=== PATIENT | male | born 1990 | race Caucasian/White ===

== ENCOUNTER 2021-07-08 06:28 | Inpatient (IN) ==
[2021-07-08] MEDS ORDERED: CeFAZolin Syr 2,000MG/20 ML 2,000 MG/20 ML SYRINGE IVPB ONE (06:49)
[2021-07-08] MEDS ORDERED: Ringers Solution, Lactated 1,000 ML IVC SCH (07:00)
[2021-07-08] MEDS ORDERED: *HR* FentaNYL (PF) 100 MCG/2 ML VIAL IVP PRN (07:01)
[2021-07-08] MEDS ORDERED: *HR* HYDROmorphone PF 0.5 MG/0.5 ML SYRINGE IVP PRN (07:01)
[2021-07-08] MEDS ORDERED: *HR* FentaNYL (PF) 100 MCG/2 ML VIAL ONE (07:19)
[2021-07-08] MEDS ORDERED: *HR* Rocuronium Bromide 50 MG/5 ML VIAL ONE ×2 (07:19→08:18)
[2021-07-08] MEDS ORDERED: Ondansetron 4 MG/2 ML VIAL ONE (07:19)
[2021-07-08] MEDS ORDERED: Lidocaine -MPF 2% 2 ML VIAL ONE ×2 (07:19)
[2021-07-08] MEDS ORDERED: *HR* Succinylcholine 200 MG/10 ML VIAL IVP ONE (07:19)
[2021-07-08] MEDS ORDERED: *HR* Midazolam HCl 2 MG/2 ML VIAL ONE (07:19)
[2021-07-08] MEDS ORDERED: Lidocaine -MPF 4% 5 ML AMPUL ONE (07:19)
[2021-07-08] MEDS ORDERED: *HR* Propofol 200 MG/20 ML VIAL IVP ONE ×2 (07:19→08:17)
[2021-07-08] MEDS ORDERED: Acetaminophen IV 1,000 MG/100 ML BAG IVPB ONE (07:23)
[2021-07-08] MEDS ORDERED: *HR* HYDROMORPHONE 2 MG/ML VIAL ONE (08:12)
[2021-07-08] MEDS ORDERED: EPHEDrine 50 MG/ML VIAL ONE (08:57)
[2021-07-08] MEDS ORDERED: Ketorolac 30 MG/ML VIAL ONE (09:26)
[2021-07-08] MEDS ORDERED: Naloxone 0.4 MG/ML INJ IVP PRN (10:55)
[2021-07-08] MEDS ORDERED: Ondansetron 4 MG/2 ML VIAL IVP PRN (10:55)
[2021-07-08] MEDS: Ipratropium/Albuterol Neb 3 ML IH SCH ×4 (11:11→23:36)
[2021-07-08] MEDS: Ketorolac 15 MG/ML VIAL IVP SCH ×3 (11:53→23:21)
[2021-07-08] MEDS: 0.9 % Sodium Chloride 1,000 ML IVC SCH (11:54)
[2021-07-08] MEDS: Gabapentin 300 MG CAPSULE PO SCH ×2 (15:02→19:21)
[2021-07-08] MEDS: *HR* Heparin 5,000 UNIT/ML VIAL SQ SCH ×2 (15:03→21:56)
[2021-07-08] MEDS: Famotidine 20 MG TABLET PO SCH (15:03)
[2021-07-08] MEDS: *HR* HYDROcodone/Acet 5/325 mg TABLET PO PRN (15:04)
[2021-07-08] MEDS: Sennosides/Docusate Sodium TABLET PO SCH (19:21)
[2021-07-09] MEDS: 0.9 % Sodium Chloride 1,000 ML IVC SCH (01:30)
[2021-07-09 03:02] LABS: Hematocrit 38.5 % (37.5-50.1); Hemoglobin 12.8 g/dL (12.9-16.9); Mean Corpuscular HGB Conc 33.2 g/dL (31.6-35.5); Mean Corpuscular Hemoglobin 30.6 pg (28.0-33.3); Mean Corpuscular Volume 92.1 fL (83.0-100.0); Mean Platelet Volume 11.6 fL (9.4-12.4); Platelet Count 232 K/mcL (140-400); Red Blood Count 4.18 M/mcL (4.19-5.50); Red Cell Distribution Width 12.8 % (11.5-14.5); White Blood Count 16.3 K/mcL (4.3-11.1)
[2021-07-09] MEDS: Ipratropium/Albuterol Neb 3 ML IH SCH ×6 (03:17→23:33)
[2021-07-09 03:22] LABS: BUN/Creatinine Ratio 10 (6-26); Blood Urea Nitrogen 8 mg/dL (6-20); Calcium 9.1 mg/dL (8.6-10.3); Carbon Dioxide 22 mEq/L (23-29); Chloride 106 mEq/L (98-107); Glucose 125 mg/dL (70-105); Magnesium 1.8 mg/dL (1.6-2.6); Osmolality,Calculated 284 (280-300); Potassium 3.8 mEq/L (3.5-5.1); Sodium 137 mEq/L (136-145); eGFR For African Americans > 60 (> 60); eGFR For Non-African Americans > 60 (> 60)
[2021-07-09] MEDS: Ketorolac 15 MG/ML VIAL IVP SCH ×3 (05:47→17:29)
[2021-07-09] MEDS: *HR* Heparin 5,000 UNIT/ML VIAL SQ SCH ×3 (05:48→20:02)
[2021-07-09] MEDS: Famotidine 20 MG TABLET PO SCH ×2 (07:54→15:30)
[2021-07-09] MEDS: Gabapentin 300 MG CAPSULE PO SCH ×3 (07:54→20:02)
[2021-07-09] MEDS: Sennosides/Docusate Sodium TABLET PO SCH ×2 (07:54→20:02)
[2021-07-09] MEDS: *HR* HYDROcodone/Acet 5/325 mg TABLET PO PRN (11:42)
[2021-07-10] MEDS: Ipratropium/Albuterol Neb 3 ML IH SCH ×2 (03:42→07:39)
[2021-07-10] MEDS: *HR* Heparin 5,000 UNIT/ML VIAL SQ SCH (06:04)
[2021-07-10] MEDS: Ketorolac 15 MG/ML VIAL IVP SCH ×2 (06:04)
[2021-07-10] MEDS: Gabapentin 300 MG CAPSULE PO SCH (07:32)
[2021-07-10] MEDS: Sennosides/Docusate Sodium TABLET PO SCH (07:32)
[2021-07-10] MEDS: Famotidine 20 MG TABLET PO SCH (07:32)
[2021-07-10 09:19] VITALS: BP 157/83; PULSE 89; TEMP 98.1; O2SAT 97
== END 2021-07-10 10:59 | disposition home or self-care (01) | DRG 950 ==
LOC: SAMDAY 06:28 → 2NNU 10:53
PROVIDERS: ADMIT Thoracic Surgery (Cardiothoracic Vascular Surgery); ATTEND Thoracic Surgery (Cardiothoracic Vascular Surgery)